=== PATIENT | female | born 1980 | race Caucasian/White ===

== ENCOUNTER 2017-03-13 14:30 | Emergency (ER) | payer MEDICAID ==
[~2017-03-13] VITALS: Ht 165.1 cm; Wt 127.0 kg
[~2017-03-13 14:30] MED LIST: FLEXERIL10 MG PO; MOBIC7.5 MG PO; NORCO 325 MG-51 TAB PO
--- OUTSIDE RECORDS SUMMARY | 2017-03-13 14:35 | External Medical Summary Rpt | CCD ---
Author Author , BROOKS Organization BROOKS Address Unknown Phone [email or web address] Immunization Name Date Rout CVX Reac Dose Comm Prov Is Faci e tion ent ider Refu lity Give sed n Tdap 09-0 115 999 Hist H112 No H112 , 7-20 oric Adso 10 al rbed Info rmat ion - Sour ce Unsp ecif ied
--- OUTSIDE RECORDS SUMMARY | 2017-03-13 14:35 | External Medical Summary Rpt | CCD ---
Author Author , BROOKS Organization BROOKS Address Unknown Phone [email or web address] Immunization Name Date Rout CVX Reac Dose Comm Prov Is Faci e tion ent ider Refu lity Give sed n Tdap 09-0 115 999 Hist H112 No H112 , 7-20 oric Adso 10 al rbed Info rmat ion - Sour ce Unsp ecif ied
--- OUTSIDE RECORDS SUMMARY | 2017-03-13 14:35 | External Medical Summary Rpt | CCD ---
Author Author , BROOKS GUY Address Unknown Phone [email or web address] Address Phone TRINA Next Of Kin [facility] [address] [phone] [place] [address] Purpose Continuity of Care Document - 01-22-2013 through 2016 Allergies, Adverse Reactions, Alerts Type Allergy to substance Adverse Reaction to Substance Substance Reaction Severity NO KNOWN ALLERGIES Unknown Unknown Medications Na ND Rx Da Fi Fi Am Da Di Ph RX Ph St me C No te ll ll ou ys ag ar # ys at rm s nt no ma ic us Or Da si cy ia de te s n re d AD 49 10 0 No AC 28 -0 EL 10 6- Lo 40 20 ng TD 01 13 er AP 0 Ac ti AL ve LI 63 10 0 No DO 32 -0 CA 30 6- Lo IN 20 20 ng E 11 13 er HC 0 L Ac 1% ti ve AL Vital Signs 01-22-2013 17:53 Name Value Interpretat Reference Comment ion Range BP 100 mm[Hg] Diastolic BP Systolic 133 mm[Hg] Heart 71 /min Rate/Pulse O2% 97 % Respiratory 20 /min Rate Encounters Encounter Start End Date Code Location Performer Type Date Emergency SERGE PUENTES MD (ER) 3 17:05 3 17:53 [facility]
--- OUTSIDE RECORDS SUMMARY | 2017-03-13 14:35 | External Medical Summary Rpt ---
Author Author BROOKS [employer], [employer] Organization [employer] Address Unknown Phone Unavailable
--- OUTSIDE RECORDS SUMMARY | 2017-03-13 14:35 | External Medical Summary Rpt | CCD ---
Author Author , BROOKS GUY Address Unknown Phone [email or web address] Support Name Relationship Address Phone TRINA Next Of Kin [facility] [address] [phone] [place] [address] Purpose Continuity of Care Document - 01-22-2013 [...] PUENTES MD (ER) 3 17:05 3 17:53 [facility]
--- OUTSIDE RECORDS SUMMARY | 2017-03-13 14:35 | External Medical Summary Rpt | CCD ---
Author Author [employer] Organization [employer] Address Unknown Phone Unavailable Purpose Continuity of Care Document - through 2016
[2017-03-13 15:07] LABS: HEMOGLOBIN 14.6 g/dL (12.2-16.2); LYMPH # 1.4 K/mm3 (0.7-4.5); LYMPH % 11.1 % (10-50.0)
--- NOTE | 2017-03-13 15:36 | Emergency Room Report ---
History of Present Illness Time Seen by 1450 Presenting Problem in Triage Pt arrived:Wheelchair Presenting Problem:PT REPORTS R FLANK PAIN THAT IS RADIATING TO R LOWER ABD, REPORTS NEED TO VOID BUT STATES IS UNABLE TO. 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 N Clinical Suspician of Infection? N Mental Status: 1 - Regular (Normal Baseline) Sepsis Risk:Low Sepsis Risk Have you (or family members/close friends) recently traveled outside the [place]? N If Yes, where/when: Have you had exposure to infectious disease within the past month? N TB? Other? Specify: Source patient, RN notes reviewed, family, old records Exam Limitations no limitations Comment acute onset of rt flank pain with n/v which started today with no fever or rash Cardiac Chest Pain Chest pain indicative of cardiac No Timing/Duration this evening Severity moderate ALLERGIES Coded Allergies: No Known Allergies (03/13/17) Home Medications Reported Medications No Known Home Medications History Medical History General CAD? No Angina: No PA: No Hypertension? No Hyperlipidemia? No CHF? No DVT? No PE? No COPD? No Asthma? No Anemia? No GERD? No Gastric ulcers? No GI Bleed? No Hernia? No Thyroid Problems? No Hypothyroidism? No CVA? No Seizures? No Diabetes? No Insulin Dependent: No Insulin Pump: No Home FSBS? No Renal Insuffiency? No End Stage Renal Disease? No UTI? No Stones? No BPH? No GB Disease: Yes Nephritic Syndrome? No Asplenia? No Hepatitis? No Sickle Cell Disease? No Arthritis? No Migraines? No Cataracts? No Glaucoma? No MRSA? No HIV? No TB? No Anxiety? No Depression? No Cancer? No More? 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 Respiratory denies cough, denies shortness of breath, denies wheezing Cardiovascular denies chest pain, denies syncope Gastrointestinal see HPI, denies constipation, nausea, vomiting Genitourinary denies: dysuria, frequency, hesitancy, hematuria. Musculoskeletal denies back pain, denies joint pain, denies joint swelling, denies neck pain Skin denies rash Psychiatric/Neurological denies headache, denies seizure Physical Exam Vital Signs Vital Signs Date Time Temp Pulse Resp B/P Pulse O2 O2 Flow FiO2 Ox Delivery Rate 03/13 1634 18 03/13 1632 80 20 145/83 98 03/13 1505 20 03/13 1445 98.0 54 22 149/68 95 - WBC >12,000 or <4,000 or 10% bands? 2 or more SIRS Criteria Met? B/P:145/83 MAP:95 Creatinine >2.0? UA output<0.5ml/kg/hr for 2 hrs? Platelet count >100,000? Lactate >2.0mmol/1? INR >1.2 or PTT > than 60 sec? Evidence of Organ Dysfunction? Provider documented clinical suspician of infection? N Sepsis Criteria Count: 0 Sepsis Risk: Low Sepsis Risk General Appearance no apparent distress Eye Exam - bilateral eye PERRL, bilateral eye EOMI Ear, Nose, Throat normal ENT inspection Neck supple Respiratory Status No: respiratory distress. 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 No Results/Orders Laboratory Tests 03/13/17 1535: Urine Color DK YELLOW, Urine Appearance CLEAR, Urine pH 5.5, Ur Specific [place] >= 1.030, Urine Protein 1+ H, Urine Ketones 3+ H, Urine Blood 3+ H, Urine Nitrate NEGATIVE, Urine Bilirubin NEGATIVE, Urine Urobilinogen 0.2, Ur Leukocyte Esterase NEGATIVE, Urine RBC 20-50, Urine WBC 10-20, Ur Squamous Epith Cells 10- 20, Urine Bacteria 4+, Urine Mucus 4+, Urine Glucose NEGATIVE 03/13/17 1500: Sodium 139, Potassium 3.6, Chloride 103, Carbon Dioxide 23, BUN 12, Creatinine 0.9, Estimated Creat Clear 173, Estimated GFR (MDRD) 71, Glucose 169 H, Calcium 9.3, Total Bilirubin 0.8, AST 27, ALT 62, Alkaline Phosphatase 74, Total Protein 7.9, Albumin 4.1, Globulin 3.8 H, Albumin/Globulin Ratio 1.1, WBC 13.0 H, RBC 4.77, Hgb 14.6, Hct 42.2, MCV 88.4, RDW 12.8, Plt Count 299, MPV 7.8, Gran % 83.2 H, Gran # 10.8 H, Lymphocytes % 11.1, Monocytes % 4.9, Eosinophils % 0.6, Basophils % 0.2, Lymphocytes # 1.4, Monocytes # 0.6, Eosinophils # 0.1, Basophils # 0.0, PUBS MCHC 34.6, MCH 30.6 Current Medication Orders Sig/Ivan Start time Last Medication Dose Route Stop Time Status Admin Promethazine HCl 0 .STK-MED ONE 03/13 1633 DC .ROUTE Morphine Sulfate 0 .STK-MED ONE 03/13 1632 DC .ROUTE Sodium Chloride 25 ML .STK-MED ONE 03/13 1632 DC IV Morphine Sulfate 2 MG ONCE ONE 03/13 1630 DC 03/13 IV 03/13 1631 1634 Promethazine HCl 12.5 MG ONCE ONE 03/13 1630 DC 03/13 IV 03/13 1631 1634 Sodium Chloride 25 ML ONCE ONE 03/13 1630 DC 03/13 IV 03/13 1644 1634 Ketorolac 30 MG ONCE ONE 03/13 1515 DC 03/13 Tromethamine IV 03/13 1516 1505 Ondansetron HCl 4 MG ONCE ONE 03/13 1515 DC 03/13 IV 03/13 1516 1505 Sodium Chloride 1,000 ML .Q1H1M 03/13 1515 DC 03/13 IV 03/13 1615 1505 Sodium Chloride 10 ML PRN PRN 03/13 1515 AC IV 03/14 1502 Sodium Chloride 10 ML PRN PRN 03/13 1515 AC IV 03/14 1502 Sodium Chloride 1,000 ML .STK-MED ONE 03/13 1500 DC IV Ketorolac 0 .STK-MED ONE 03/13 1459 DC Tromethamine .ROUTE Ondansetron HCl 0 .STK-MED ONE 03/13 1459 DC .ROUTE Orders Procedure Date/time Status DIET-NOTHING BY MOUTH 03/13 D Active CULTURE, URINE 03/[address] ABD/PELVIS REQ 03/13 1502 Complete IV SALINE LOCK 03/13 1502 Active URINALYSIS/COMPLETE 03/13 1502 Complete CBC WITH AUTO DIFF 03/13 1502 Complete CHEM 12 PROFILE 03/13 1502 Complete XRAY/CT/US XRAY/CT/US CT abdomen, pelvis CT interpretation by discussed w/radiologist Time results known: 1651 CT Results abnormal (see report) Departure Departure Time of Disposition 8 Disposition DC Home or Self Care(routine) Clinical Impression Primary Impression: Renal colic on right side Condition STABLE Referrals Candace JOY,Joni Mcdaniels MD,Yosef Patient Instructions DI for Kidney Stones Additional Instructions fluids and see pcp or urology for follow up Discharge Counseling Counseled pt/family regarding diagnosis, test results, medications/RX, follow up needs Prescriptions Current Visit Scripts HYDROCODONE/ACETAMINOPHEN (Humble 5-325 Tablet) 1 TAB PO Q6HP PRN pain #10 TAB ONDANSETRON HCL (Zofran 4MG Tab) 4 MG PO Q6HP PRN NAUSEA AND VOMITING #20 TAB ED Critical Care Critical Care No at 1656
[2017-03-13 15:47] LABS: URINE BLOOD 3+ (NEG)
[2017-03-13 15:49] LABS: URINE BILIRUBIN - DIPSTICK NEGATIVE (NEG)
--- NOTE | 2017-03-13 16:24 | RADIOLOGY REPORT PS360 ---
CT ABD PELVIS W/O CONTRAST COMPARISON: None HISTORY: Flank pain, nausea and vomiting TECHNIQUE: Axial scans obtained from hemidiaphragms the pelvic floor and were performed without IV or oral contrast. FINDINGS: The lower lung armstrong are clear. The liver spleen stomach and pancreas appear normal. There has been previous cholecystectomy. The adrenal glands are normal. The kidneys are normal size. This prominent hydronephrosis of the right collecting system with moderate kinking of the proximal right ureter. The urinary bladder is decompressed making evaluation difficult but appears be a tiny distal ureteral calculus sitting at the UV junction measuring 2 to 3 mm in size. There are additional phleboliths in both sides the pelvis. Left kidney is normal. Small bowel is normal. The appendix is normal caliber. The scattered stool in ascending and transverse colon. The uterus is normal size and in the midline. IMPRESSION: Moderate hydronephrosis right kidney with tiny distal ureteral calculus at the UV junction, no other significant abdomen I noted
[2017-03-13] MEDS ORDERED: ZOFRAN4 MG PO (16:56)
[2017-03-13] MEDS ORDERED: NORCO 325 MG-51 TAB PO (16:56)
[2017-03-13 17:06] VITALS: BP 146/88
== END 2017-03-13 17:07 | disposition home or self-care (01) ==
LOC: UTC 14:30 → ER 14:33 → UTC 14:33 → ER 17:07
PROVIDERS: Emergency Medicine
DX: N23 Unspecified renal colic (principal)
CPT/HCPCS: J2405